=== PATIENT | female | born 1985 | race Caucasian/White ===

== ENCOUNTER → 2016-12-09 13:48 | Outpatient (CLI) | payer MEDICAID ==
[2015-04-10 02:04] VITALS: BMI 25.8
[~2016-12-09 13:48] MED LIST: CLEOCIN HCL300 MG PO; ZOFRAN4 MG PO
== END | disposition home or self-care (01) ==
LOC: D.US 13:48
DX: N63 Unspecified lump in breast (principal); N64.52 Nipple discharge

== ENCOUNTER 2016-12-27 17:13 | Emergency (ER) | payer MEDICAID ==
[2015-04-10 02:04] VITALS: BMI 25.8
[2016-12-27 18:46] LABS: BASOPHILS 0.3 % (0.0-2.0); EOSINOPHILS 2.1 % (0-7); HEMATOCRIT 39.1 % (36.0-48.0); IMMATURE GRANULOCYTES 0.2 % (0-5); LYMPHOCYTES 35.9 % (15-50); MCH 31.6 pg (26.0-34.0); MCHC 33.2 g/dL (31.0-37.0); MCV 95.1 fL (80.0-100.0); MEAN PLATELET VOLUME 11.2 fL (7.4-10.4); MONOCYTES 7.3 % (2-11); NEUTROPHILS 54.2 % (40-80); PLATELET COUNT 173 10x3/uL (130-400); RBC 4.11 10x6/uL (4.00-5.40); RDW 12.5 % (11.5-14.5); WBC 6.3 10x3/uL (4.8-10.8)
[2016-12-27 19:00] LABS: ALBUMIN 3.7 g/dL (3.4-5.0); ALKALINE PHOSPHATASE 37 U/L (46-116); ALT (SGPT) 15 U/L (10-68); BILIRUBIN - TOTAL 0.39 mg/dL (0.2-1.3); CALC OSMOLALITY 281 mosm/kg (275-300); CALCIUM 8.5 mg/dL (8.5-10.1); CARBON DIOXIDE 31.9 mmol/L (21.0-32.0); CHLORIDE - SERUM 106 mmol/L (98-107); CREATININE - SERUM 0.8 mg/dL (0.6-1.3); GLUCOSE 81 mg/dL (74-106); POTASSIUM - SERUM 4.1 mmol/L (3.5-5.1); PROTEIN - SERUM 6.6 g/dL (6.4-8.2); SODIUM 142 mmol/L (136-145); UREA NITROGEN 12 mg/dL (7-18); eGFR NON AFRICAN AMERICAN 90 mL/min (90-120)
[2016-12-27 19:53] LABS: HCG URINE NEGATIVE (NEGATIVE)
[2016-12-27 19:55] LABS: APPEARANCE SLT CLOUDY (CLEAR); BILIRUBIN NEGATIVE (NEGATIVE); COLOR YELLOW (YELLOW); GLUCOSE NEGATIVE (NEGATIVE); KETONE NEGATIVE (NEGATIVE); LEUKOCYTE ESTERASE NEGATIVE (NEGATIVE); NITRITE NEGATIVE (NEGATIVE); PROTEIN NEGATIVE (NEGATIVE); UROBILINOGEN NORMAL (NORMAL)
[2016-12-27 20:00] LABS: AMORPHOUS SEDIMENT >1+ /lpf (NONE SEEN); BACTERIA FEW /hpf (NONE SEEN); EPITHELIAL CELLS 0-5 /hpf (0-5); RED CELLS - URINE NONE SEEN /hpf (0-5); WHITE CELLS - URINE 0-5 /hpf (0-5)
== END 2016-12-27 22:40 | disposition home or self-care (01) ==
LOC: D.ER 17:13
PROVIDERS: Emergency Medicine
DX: R53.1 Weakness (principal); R20.9 Unspecified disturbances of skin sensation; F41.9 Anxiety disorder, unspecified; F12.10 Cannabis abuse, uncomplicated

== ENCOUNTER 2016-12-30 15:53 | Emergency (ER) | payer MEDICAID ==
[2015-04-10 02:04] VITALS: BMI 25.8
[2016-12-30 19:49] LABS: BASOPHILS 0.3 % (0.0-2.0); EOSINOPHILS 0.8 % (0-7); HEMATOCRIT 40.1 % (36.0-48.0); HEMOGLOBIN 13.4 g/dL (12-16); IMMATURE GRANULOCYTES 0.1 % (0-5); LYMPHOCYTES 30.4 % (15-50); MCH 31.4 pg (26.0-34.0); MCHC 33.4 g/dL (31.0-37.0); MCV 93.9 fL (80.0-100.0); MEAN PLATELET VOLUME 11.3 fL (7.4-10.4); MONOCYTES 6.2 % (2-11); NEUTROPHILS 62.2 % (40-80); PLATELET COUNT 159 10x3/uL (130-400); RBC 4.27 10x6/uL (4.00-5.40); RDW 12.5 % (11.5-14.5); WBC 7.3 10x3/uL (4.8-10.8)
[2016-12-30 20:32] LABS: ALBUMIN 4.1 g/dL (3.4-5.0); ALKALINE PHOSPHATASE 41 U/L (46-116); ALT (SGPT) 16 U/L (10-68); BILIRUBIN - TOTAL 0.72 mg/dL (0.2-1.3); CALC OSMOLALITY 276 mosm/kg (275-300); CALCIUM 8.6 mg/dL (8.5-10.1); CARBON DIOXIDE 28.7 mmol/L (21.0-32.0); CHLORIDE - SERUM 103 mmol/L (98-107); CREATININE - SERUM 0.7 mg/dL (0.6-1.3); GLUCOSE 84 mg/dL (74-106); POTASSIUM - SERUM 4.1 mmol/L (3.5-5.1); SODIUM 139 mmol/L (136-145); UREA NITROGEN 13 mg/dL (7-18); eGFR NON AFRICAN AMERICAN > 90 mL/min (90-120)
[2016-12-30 20:41] LABS: THYROID STIMULATING HORMONE 1.77 uIU/mL (0.36-3.74)
[2016-12-30 20:56] LABS: ERYTHROCYTE SEDIMENTATION RATE 8 mm/hr (0-20)
== END 2016-12-30 21:08 | disposition home or self-care (01) ==
LOC: D.ER 15:53
PROVIDERS: Family Medicine
DX: G62.9 Polyneuropathy, unspecified (principal)

== ENCOUNTER 2017-01-02 11:53 | Emergency (ER) | payer MEDICAID ==
[2015-04-10 02:04] VITALS: BMI 25.8
== END 2017-01-02 14:56 | disposition home or self-care (01) ==
LOC: D.ER 11:53
DX: G62.9 Polyneuropathy, unspecified (principal); F17.200 Nicotine dependence, unspecified, uncomplicated; F15.10 Other stimulant abuse, uncomplicated

== ENCOUNTER → 2017-03-13 12:57 | Outpatient (CLI) | payer MEDICAID ==
[2015-04-10 02:04] VITALS: BMI 25.8
== END | disposition home or self-care (01) ==
LOC: D.MRI 12:57
DX: R29.898 Other symptoms and signs involving the musculoskeletal system (principal); F32.0 Major depressive disorder, single episode, mild

== ENCOUNTER → 2017-05-07 08:05 | Outpatient (CLI) | payer OTHER ==
[2015-04-10 02:04] VITALS: BMI 25.8
--- NOTE | ~2017-05-07 | EMG ---
PATIENT:CHRIS LUDWIG DATE OF SERVICE: 05/07/17 MEDICAL RECORD: [id number] DATE OF : 89 LOCATION: [facility] ADMISSION DATE: REFERRING PHYSICIAN: SIENNA FIELDS MD INTERPRETING PHYSICIAN: NOEMY GIPSON MD DATE OF SERVICE: 05/07/[address] Fields as an outpatient. ELECTROMYOGRAPHIC DATA: Electromyographic examination is limited to the right lower extremity. In the right lower extremity, right peroneal motor stimulation elicits a compound motor action potential with a distal latency of 3.7 milliseconds, peak amplitude of 4 millivolts, and calculated conduction velocity of 50 meters per second. Right tibial motor stimulation elicits a compound motor action potential with a distal latency of 4.3 milliseconds, peak amplitude of 13 millivolts, and calculated conduction velocity of 49 meters per second. Antidromic right sural sensory stimulation elicits a response with a distal latency of 2.8 milliseconds, amplitude of 12 microvolts and calculated conduction velocity of 42 meters per second. The right lower extremity H reflex recording at gastrocsoleus has a latency of 29 milliseconds. Needle electrode examination is limited to the right lower extremity as well. Muscles interrogated include the abductor hallucis, extensor digitorum brevis, abductor digiti quinti, tibialis anterior, medial gastrocnemius, vastus lateralis, semitendinosis and gluteus nereida. There is no abnormality of insertional activity and no abnormal spontaneous activity is seen in all muscles interrogated. Motor unit potential morphology and the pattern of motor unit potential firing and recruitment however, is abnormal. No motor unit fire on reported attempted contraction of intrinsic foot muscles as well as the tibialis anterior and medial gastrocnemius. Motor unit potential morphology and the pattern of motor unit potential firing and recruitment in the more proximal limb including the quadriceps femoris, semitendinosis and gluteus nereida demonstrates a decrease in the number of motor units firing at a slow variable rate consistent with decreased and variable recruitment. Motor unit potential morphology is normal in all of these observed muscles. INTERPRETATION: Electromyographic examination of the right lower extremity is normal with the exception of absence of any motor units firing from the intrinsic foot muscles as well as the tibialis anterior and medial gastrocnemius. More proximally, motor units are normal in morphology, but demonstrate a slow variable pattern of firing consistent with either decreased patient's effort on upper motor neuron pattern. Clinical correlation is required. TRANSINT:[id number] Voice Confirmation ID: [id number] DOCUMENT ID: [id number] ELECTROMYGRAM/NERVE CONDUCTION [id number] CHRIS LUDWIG DONALD P MD CC: [id number] DICTATION DATE: 05/07/17 0854 DSP ENGINEER: 05/08/17 0137 DEP CLI 05/07/17 [place] [id number]
== END | disposition home or self-care (01) ==
LOC: D.CN 02-24 09:00
DX: R20.9 Unspecified disturbances of skin sensation (principal)

== ENCOUNTER 2018-05-06 11:49 | Emergency (ER) | payer MEDICAID ==
[~2018-05-06] VITALS: Ht 162.6 cm; Wt 61.4 kg
[2018-05-06 11:53] VITALS: Ht 162.6 cm; Wt 61.4 kg
[2018-05-06] MEDS ORDERED: VOLTAREN75 MG PO (14:30)
[2018-05-06] MEDS ORDERED: HYDROCODONE-APA1 TAB PO (14:30)
[2018-05-06 14:59] VITALS: BP 118/078
[2018-05-14] MEDS ORDERED: VALIUM5 MG PO (17:25)
[2018-05-14] MEDS ORDERED: VYVANSE70 MG PO (17:25)
[2018-05-14] MEDS ORDERED: NORCO 7.5/325 T1 TA1 PO (17:26)
[2018-05-15] MEDS ORDERED: PERCOCET 10/3251 TA1 PO (12:57)
[2018-05-15] MEDS ORDERED: VISTARIL50 MG PO (12:57)
[2018-05-15] MEDS ORDERED: DURICEF500 MG PO (12:57)
== END 2018-05-06 15:02 | disposition home or self-care (01) ==
LOC: D.ER 11:49
DX: S52.121A Displaced fracture of head of right radius, initial encounter for closed fracture (principal); W19.XXXA Unspecified fall, initial encounter; Y93.89 Activity, other specified; Y92.019 Unspecified place in single-family (private) house as the place of occurrence of the external cause; F17.200 Nicotine dependence, unspecified, uncomplicated

== ENCOUNTER → 2018-05-11 17:32 | Outpatient (CLI) | payer OTHER ==
[2018-05-06 11:53] VITALS: BMI 23.2
[~2018-05-11 17:32] MED LIST changes: +DURICEF500 MG PO; +ENDOCET 10-3251 TAB PO; +HYDROCODONE-APA1 TAB PO; +KEFLEX500 MG PO; +NORCO 7.5/325 T1 TA1 PO; +PERCOCET 10/3251 TA1 PO; +VALIUM5 MG PO; +VISTARIL50 MG PO; +VOLTAREN75 MG PO; +VYVANSE70 MG PO
== END | disposition home or self-care (01) ==
LOC: D.CT 17:30
DX: S52.131A Displaced fracture of neck of right radius, initial encounter for closed fracture (principal); X58.XXXA Exposure to other specified factors, initial encounter

== ENCOUNTER 2018-05-15 13:15 | Day surgery (SDC) | payer OTHER ==
[2018-05-14 17:47] LABS: HEMOGLOBIN 11.5 g/dL (12-16); MCH 31.6 pg (26.0-34.0); MCHC 32.9 g/dL (31.0-37.0); MCV 96.2 fL (80.0-100.0); MEAN PLATELET VOLUME 10.5 fL (7.4-10.4); RBC 3.64 10x6/uL (4.00-5.40); RDW 12.4 % (11.5-14.5); WBC 6.6 10x3/uL (4.8-10.8)
[~2018-05-15] VITALS: Ht 162.6 cm; Wt 54.4 kg
--- NOTE | ~2018-05-15 | OP ---
PATIENT NAME: CHRIS BARRIOS MEDICAL RECORD: [id number] :89 LOCATION:[facility] ADMISSION DATE: SURGEON: DELMIS RUBY DO DATE OF OPERATION: 05/15/2018 PROCEDURE PERFORMED: Right radial head arthroplasty. PREOPERATIVE DIAGNOSIS: Right radial head displaced and comminuted closed fracture. POSTOPERATIVE DIAGNOSIS: Right radial head displaced and comminuted closed fracture. INDICATIONS: Ms. Barrios is a right hand dominant female who fell approximately a week ago onto her right elbow sustaining a fracture to her right radial head. She was seen in clinic and x-rays were done from the ER and saw there was ordered a CT and CT demonstrated a comminuted radial head fracture that was displaced, greater than 30% and was in approximately 3 pieces. I had a long discussion with the patient due to the fact that she smokes and bone healing is poor in smokers and I told her that if I could fix it with open reduction internal fixation, in other words plates and screws, I would, however, if it were comminuted severely then I would likely do a radial head arthroplasty due to the fact that she smokes and she would likely not heal it. She was okay with that. In fact, she requested that I do the radial head replacement, but I told her I would wait and see when I got into the surgery. She is aware of the risks and benefits of procedure including damage to the posterior interosseous nerve and she consented to the procedure as well as infection, bleeding, need for further surgery, and long-term elbow pain. She consented to that for right radial head arthroplasty versus open reduction and internal fixation. DESCRIPTION OF PROCEDURE: The patient was given a block and preoperative anesthesia and taken to the operative suite, laid in supine position, given general anesthetic. The right upper extremity was prepped and draped in sterile fashion with a tourniquet above the elbow. Once she was prepped and draped, a timeout was performed, everyone was in agreement of correct side, site, and patient. An incision was then marked out and an Esmarch was used to exsanguinate the right upper extremity and inflated to 250 mmHg. It was up for 57 minutes. The incision then began at the skin obliquely across the lateral epicondyle. Careful dissection was made down to the plane between the extensor carpi ulnaris and the anconeus muscles. This interval was the Costello interval and was used to dissect down to the radial head and the capsule itself. Once dissection was made down, the capsulotomy was performed and the radial head was exposed. Once the radial head was exposed, it was seen to be in several pieces and comminuted and rotated. Reduction was attempted, but it fell apart and at that time it was decided to do a radial head arthroplasty due to the severity of the comminution and per the patient's request. Then, the neck was cut in order to accommodate the neck of the implant of the radial neck after careful dissection and exposure of it. The hand was held in pronation the entire time in order to protect the posterior interosseous nerve. The broach was used, 7 fit well. I could not get all the way down. We trialed with a 7, with a 22 head size and 0 neck and that seemed to fit well. However, once we put the actual implant of the 7, it was somewhat loose and I then broached up to an 8 and put an 8 neck in and then implanted the 0 neck with 22. This was confirmed on AP x-ray to be in good position, not overstuffed to the joint. She had full range of motion of the elbow while asleep in pronation and supination and OPERATIVE REPORT [id number] CHRIS BARRIOS L flexion and extension. Once the implant was set, the fovea was marked of the ulna and the rotation of the implant was set with a set screw. After this was done, the x-rays were taken and confirmed to be in good placement and good movement. X-rays in the AP plane were taken in supination and pronation and again it was seen to fit well and have a good fit. The capsule was then closed with 0 Vicryl, first in a [id number] and then a running stitch and that was cut and then the Costello's interval between the extensor carpi ulnaris and anconeus was closed with 0 Vicryl and skin was closed with 3-0 Vicryl and 4-0 Monocryl ran on the skin. Steri-Strips were placed over it. The tourniquet was let down at that time at 57 minutes and the Adaptic, 4 x 4s and Webril were placed on the patient and a posterior long arm splint was placed on the patient and secured with an Booker wrap. She was then awakened and taken to recovery in stable condition. COMPLICATIONS: None. TOURNIQUET TIME: 57 minutes. BLOOD LOSS: Minimal. TRANSINT:[id number] Voice Confirmation ID: [id number] DOCUMENT ID: [id number] DELMIS RUBY DO at 1523 CC: [id number] DICTATION DATE: 05/15/18 1416 PATROLLER: 05/15/18 1434 [facility]://date// //time// [facility] [address] [place] [address]
[2018-05-15 11:03] VITALS: BP 106/66; Ht 162.6 cm; Wt 54.4 kg
[~2018-05-15 13:15] MED LIST changes: -ENDOCET 10-3251 TAB PO; -KEFLEX500 MG PO
== END 2018-05-15 15:30 | disposition home or self-care (01) ==
LOC: D.OPS 13:15
PROVIDERS: Anesthesiology
DX: S52.121A Displaced fracture of head of right radius, initial encounter for closed fracture (principal); Z01.812 Encounter for preprocedural laboratory examination; Z72.0 Tobacco use; W19.XXXA Unspecified fall, initial encounter

== ENCOUNTER 2018-05-23 03:27 | Emergency (ER) | payer OTHER ==
[~2018-05-23] VITALS: Ht 162.6 cm; Wt 54.5 kg
[2018-05-23 03:35] VITALS: Ht 162.6 cm; Wt 54.5 kg
[2018-05-23 04:32] LABS: BASOPHILS 0.2 % (0-2); EOSINOPHILS 0 % (0-7); HEMATOCRIT 37.9 % (36.0-48.0); IMMATURE GRANULOCYTES 0.2 % (0-5); LYMPHOCYTES 7.8 % (15-50); MCHC 34.3 g/dL (31.0-37.0); MCV 93.3 fL (80.0-100.0); MONOCYTES 6.2 % (2-11); NEUTROPHILS 85.6 % (40-80); RBC 4.06 10x6/uL (4.00-5.40); RDW 12.6 % (11.5-14.5); WBC 11.2 10x3/uL (4.8-10.8)
[2018-05-23 04:40] LABS: PLATELET COUNT 267 10x3/uL (130-400)
[2018-05-23 04:55] LABS: ALBUMIN 3.3 g/dL (3.4-5.0); ALKALINE PHOSPHATASE 54 U/L (46-116); ALT (SGPT) 23 U/L (10-68); BILIRUBIN - TOTAL 0.61 mg/dL (0.2-1.3); CALC OSMOLALITY 274 mosm/kg (275-300); CALCIUM 8.6 mg/dL (8.5-10.1); CARBON DIOXIDE 26.5 mmol/L (21.0-32.0); CHLORIDE - SERUM 101 mmol/L (98-107); CREATININE - SERUM 0.8 mg/dL (0.6-1.3); GLUCOSE 94 mg/dL (74-106); POTASSIUM - SERUM 3.7 mmol/L (3.5-5.1); PROTEIN - SERUM 7.3 g/dL (6.4-8.2); SODIUM 137 mmol/L (136-145); UREA NITROGEN 15 mg/dL (7-18); eGFR NON AFRICAN AMERICAN 89 mL/min (90-120)
[2018-05-23 04:56] LABS: UDS - AMPHET POSITIVE QUAL (NEGATIVE); UDS - BARB NEGATIVE QUAL (NEGATIVE); UDS - BENZO POSITIVE QUAL (NEGATIVE); UDS - COCAINE NEGATIVE QUAL (NEGATIVE); UDS - OPIATE POSITIVE QUAL (NEGATIVE); UDS - PCP NEGATIVE QUAL (NEGATIVE); UDS - THC POSITIVE QUAL (NEGATIVE)
[2018-05-23 05:01] LABS: HCG SERUM NEGATIVE (NEGATIVE)
[2018-05-23 05:13] LABS: CREATINE KINASE 319 UL (21-215); THYROID STIMULATING HORMONE 0.89 uIU/mL (0.36-3.74)
[2018-05-23 05:15] LABS: CKMB 3.8 U/L (0.0-3.6)
[2018-05-23 10:22] VITALS: BP 112/70
== END 2018-05-23 10:55 | disposition other institution (70) ==
LOC: D.ER 03:27
PROVIDERS: Family Medicine
DX: F19.129 Other psychoactive substance abuse with intoxication, unspecified (principal); G40.909 Epilepsy, unspecified, not intractable, without status epilepticus; Y04.2XXA Assault by strike against or bumped into by another person, initial encounter; Y93.89 Activity, other specified; Y92.89 Other specified places as the place of occurrence of the external cause; F17.200 Nicotine dependence, unspecified, uncomplicated

== ENCOUNTER 2018-06-09 14:27 | Inpatient (IN) | payer OTHER ==
[~2018-06-09] VITALS: Ht 162.6 cm; Wt 63.5 kg
[2018-06-09 15:34] LABS: BASOPHILS 0.2 % (0-2); EOSINOPHILS 1.2 % (0-7); HEMATOCRIT 34.3 % (36.0-48.0); HEMOGLOBIN 11.7 g/dL (12-16); IMMATURE GRANULOCYTES 0.2 % (0-5); LYMPHOCYTES 19.9 % (15-50); MCH 31.5 pg (26.0-34.0); MCHC 34.1 g/dL (31.0-37.0); MCV 92.2 fL (80.0-100.0); MEAN PLATELET VOLUME 11.2 fL (7.4-10.4); MONOCYTES 11.1 % (2-11); NEUTROPHILS 67.4 % (40-80); RBC 3.72 10x6/uL (4.00-5.40); RDW 13.2 % (11.5-14.5); WBC 5.9 10x3/uL (4.8-10.8)
[2018-06-09 15:41] LABS: PLATELET COUNT 192 10x3/uL (130-400)
[2018-06-09 16:00] LABS: ALBUMIN 2.6 g/dL (3.4-5.0); ALKALINE PHOSPHATASE 48 U/L (46-116); ALT (SGPT) 13 U/L (10-68); BILIRUBIN - TOTAL 0.56 mg/dL (0.2-1.3); CALC OSMOLALITY 274 mosm/kg (275-300); CALCIUM 8.2 mg/dL (8.5-10.1); CARBON DIOXIDE 28.3 mmol/L (21.0-32.0); CHLORIDE - SERUM 105 mmol/L (98-107); CREATININE - SERUM 0.7 mg/dL (0.6-1.3); GLUCOSE 89 mg/dL (74-106); PROTEIN - SERUM 6.6 g/dL (6.4-8.2); SODIUM 139 mmol/L (136-145); UREA NITROGEN 7 mg/dL (7-18); eGFR NON AFRICAN AMERICAN > 90 mL/min (90-120)
[2018-06-09 16:03] LABS: CKMB 0.6 U/L (0.0-3.6); CREATINE KINASE 48 UL (21-215)
[2018-06-09 16:04] LABS: C-REACTIVE PROTEIN 18.4 mg/dL (0.0-0.9)
[2018-06-09 16:45] VITALS: BP 92/58
[2018-06-09 17:52] LABS: ERYTHROCYTE SEDIMENTATION RATE 8 mm/hr (0-20)
[2018-06-09 19:52] LABS: UDS - AMPHET POSITIVE QUAL (NEGATIVE); UDS - BARB NEGATIVE QUAL (NEGATIVE); UDS - BENZO NEGATIVE QUAL (NEGATIVE); UDS - COCAINE NEGATIVE QUAL (NEGATIVE); UDS - OPIATE POSITIVE QUAL (NEGATIVE); UDS - PCP NEGATIVE QUAL (NEGATIVE); UDS - THC POSITIVE QUAL (NEGATIVE)
[2018-06-09 19:59] LABS: APPEARANCE HAZY (CLEAR); BILIRUBIN NEGATIVE (NEGATIVE); COLOR YELLOW (YELLOW); GLUCOSE NEGATIVE (NEGATIVE); KETONE NEGATIVE (NEGATIVE); NITRITE NEGATIVE (NEGATIVE); PROTEIN TRACE mg/dL (NEGATIVE); SPECIFIC GRAVITY 1.015 (1.005-1.020); UROBILINOGEN NORMAL (NORMAL)
[2018-06-09 20:00] VITALS: BP 86/52
[2018-06-09 20:00] LABS: BACTERIA MANY /hpf (NONE SEEN); EPITHELIAL CELLS 0-5 /hpf (0-5); RED CELLS - URINE 0-5 /hpf (0-5); WHITE CELLS - URINE >50 /hpf (0-5)
[2018-06-09 22:58] VITALS: BP 86/52; Ht 162.6 cm; Wt 63.5 kg
[2018-06-10] VITALS: BP 90/51
[2018-06-10 04:00] VITALS: BP 99/58
[2018-06-10 05:39] LABS: BASOPHILS 0.4 % (0-2); EOSINOPHILS 3.2 % (0-7); HEMATOCRIT 29.8 % (36.0-48.0); HEMOGLOBIN 9.8 g/dL (12-16); IMMATURE GRANULOCYTES 0.2 % (0-5); LYMPHOCYTES 33.3 % (15-50); MCH 31.1 pg (26.0-34.0); MCHC 32.9 g/dL (31.0-37.0); MEAN PLATELET VOLUME 11.1 fL (7.4-10.4); NEUTROPHILS 49.9 % (40-80); PLATELET COUNT 173 10x3/uL (130-400); RBC 3.15 10x6/uL (4.00-5.40); RDW 13.6 % (11.5-14.5); WBC 5.3 10x3/uL (4.8-10.8)
[2018-06-10 05:40] LABS: MCV 94.6 fL (80.0-100.0)
[2018-06-10 05:50] LABS: ALBUMIN 2.1 g/dL (3.4-5.0); ALKALINE PHOSPHATASE 43 U/L (46-116); ALT (SGPT) 14 U/L (10-68); BILIRUBIN - TOTAL 0.38 mg/dL (0.2-1.3); CALCIUM 7.5 mg/dL (8.5-10.1); CARBON DIOXIDE 25.5 mmol/L (21.0-32.0); CHLORIDE - SERUM 106 mmol/L (98-107); CREATININE - SERUM 0.6 mg/dL (0.6-1.3); GLUCOSE 119 mg/dL (74-106); SODIUM 140 mmol/L (136-145); eGFR NON AFRICAN AMERICAN > 90 mL/min (90-120)
[2018-06-10 05:54] LABS: CALC OSMOLALITY 278 mosm/kg (275-300); POTASSIUM - SERUM 3.7 mmol/L (3.5-5.1); PROTEIN - SERUM 4.8 g/dL (6.4-8.2); UREA NITROGEN 9 mg/dL (7-18)
[2018-06-10 09:33] VITALS: BP 100/64
[2018-06-10 10:29] LABS: HCG URINE NEGATIVE (NEGATIVE)
[2018-06-10 13:25] VITALS: BP 108/73
[2018-06-10 13:38] LABS: BASOPHILS 0.5 % (0-2); EOSINOPHILS 2.5 % (0-7); HEMATOCRIT 28.7 % (36.0-48.0); HEMOGLOBIN 9.5 g/dL (12-16); IMMATURE GRANULOCYTES 0.3 % (0-5); LYMPHOCYTES 25.6 % (15-50); MCH 31.3 pg (26.0-34.0); MCHC 33.1 g/dL (31.0-37.0); MCV 94.4 fL (80.0-100.0); MEAN PLATELET VOLUME 10.9 fL (7.4-10.4); MONOCYTES 10.1 % (2-11); PLATELET COUNT 155 10x3/uL (130-400); RBC 3.04 10x6/uL (4.00-5.40); RDW 13.4 % (11.5-14.5)
[2018-06-10 13:59] LABS: CALCIUM 7.4 mg/dL (8.5-10.1); CHLORIDE - SERUM 108 mmol/L (98-107); CREATININE - SERUM 0.5 mg/dL (0.6-1.3); GLUCOSE 90 mg/dL (74-106); POTASSIUM - SERUM 3.8 mmol/L (3.5-5.1); SODIUM 139 mmol/L (136-145); eGFR NON AFRICAN AMERICAN > 90 mL/min (90-120)
[2018-06-10 14:00] LABS: CALC OSMOLALITY 275 mosm/kg (275-300); CARBON DIOXIDE 32.3 mmol/L (21.0-32.0); UREA NITROGEN 6 mg/dL (7-18)
[2018-06-10 20:00] VITALS: BP 101/63
[2018-06-11 04:00] VITALS: BP 96/49
[2018-06-11 08:40] VITALS: BP 99/40
[2018-06-11 13:34] VITALS: BP 105/72
[2018-06-11 16:48] VITALS: BP 100/60
[2018-06-11 21:09] VITALS: BP 110/85
[2018-06-12 00:53] VITALS: BP 124/74
[2018-06-12 05:06] VITALS: BP 118/84
[2018-06-12 13:32] VITALS: BP 101/55
[2018-06-12 15:24] VITALS: BP 120/63
[2018-06-12 21:42] VITALS: BP 125/51
[2018-06-13 00:42] VITALS: BP 143/71
[2018-06-13 11:05] VITALS: BP 121/61
[2018-06-13 14:46] VITALS: BP 121/58
[2018-06-13 20:00] VITALS: BP 105/69
[2018-06-14 04:00] VITALS: BP 113/59
[2018-06-14 10:22] VITALS: BP 140/87
[2018-06-14 16:42] VITALS: BP 125/60
[2018-06-14 20:33] VITALS: BP 110/48
[2018-06-15 03:54] LABS: BASOPHILS 0.6 % (0-2); EOSINOPHILS 4.9 % (0-7); HEMATOCRIT 37.6 % (36.0-48.0); HEMOGLOBIN 12.2 g/dL (12-16); IMMATURE GRANULOCYTES 0.6 % (0-5); LYMPHOCYTES 35.4 % (15-50); MCH 30.7 pg (26.0-34.0); MCHC 32.4 g/dL (31.0-37.0); MCV 94.5 fL (80.0-100.0); MEAN PLATELET VOLUME 10.1 fL (7.4-10.4); MONOCYTES 9.4 % (2-11); NEUTROPHILS 49.1 % (40-80); RBC 3.98 10x6/uL (4.00-5.40)
[2018-06-15 04:00] LABS: CALC OSMOLALITY 273 mosm/kg (275-300); CALCIUM 8.6 mg/dL (8.5-10.1); CARBON DIOXIDE 35.9 mmol/L (21.0-32.0); CHLORIDE - SERUM 99 mmol/L (98-107); CREATININE - SERUM 0.8 mg/dL (0.6-1.3); GLUCOSE 96 mg/dL (74-106); POTASSIUM - SERUM 4.9 mmol/L (3.5-5.1); SODIUM 137 mmol/L (136-145); UREA NITROGEN 12 mg/dL (7-18); eGFR NON AFRICAN AMERICAN 89 mL/min (90-120)
[2018-06-15 04:07] LABS: PLATELET COUNT 270 10x3/uL (130-400)
[2018-06-15 04:52] LABS: ERYTHROCYTE SEDIMENTATION RATE 14 mm/hr (0-20)
[2018-06-15 08:27] VITALS: BP 113/63
[2018-06-15 13:32] VITALS: BP 113/63
[2018-06-15 18:34] VITALS: BP 137/78
[2018-06-15 20:00] VITALS: BP 110/68
[2018-06-16 04:42] VITALS: BP 105/54
[2018-06-16 09:18] VITALS: BP 115/60
[2018-06-16 12:28] VITALS: BP 118/70
[2018-06-16 16:14] VITALS: BP 102/54
[2018-06-16 20:50] VITALS: BP 133/78
[2018-06-17 03:55] VITALS: BP 111/54
[2018-06-17 08:28] VITALS: BP 130/64
[2018-06-17] MEDS ORDERED: DURICEF500 MG PO (09:39)
[2018-06-17] MEDS ORDERED: ENDOCET 10-3251 TAB PO (09:39)
[2018-06-17] MEDS ORDERED: VISTARIL50 MG PO ×2 (09:40→09:43)
[2018-06-17] MEDS ORDERED: VALIUM5 MG PO (09:41)
[2018-06-17] MEDS ORDERED: KEFLEX500 MG PO (09:45)
== END 2018-06-17 14:10 | disposition home or self-care (01) | DRG 464 ==
LOC: D.ER 14:27 → D.MS 17:38 → D.EDHOLD 17:38 → D.MS 18:17
PROVIDERS: Anesthesiology; Family Medicine; Orthopaedic Surgery; Student in an Organized Health Care Education/Training Program
PROC: 0RPN0JZ Removal of Synthetic Substitute from Right Wrist Joint, Open Approach (ICD-10-PCS; principal; 2018-06-10 10:00)
PROC: 0JBG0ZZ Excision of Right Lower Arm Subcutaneous Tissue and Fascia, Open Approach (ICD-10-PCS; 2018-06-10 10:00)
DX: T84.59XA Infection and inflammatory reaction due to other internal joint prosthesis, initial encounter (principal); M00.9 Pyogenic arthritis, unspecified; F15.10 Other stimulant abuse, uncomplicated; F11.10 Opioid abuse, uncomplicated; F12.10 Cannabis abuse, uncomplicated; E87.6 Hypokalemia; F17.200 Nicotine dependence, unspecified, uncomplicated

== ENCOUNTER 2018-07-03 12:18 | Emergency (ER) | payer OTHER ==
[~2018-07-03] VITALS: Ht 162.6 cm; Wt 63.6 kg
[~2018-07-03 12:18] MED LIST changes: +ENDOCET 10-3251 TAB PO; +KEFLEX500 MG PO
[2018-07-03 12:55] VITALS: BP 098/58; Ht 162.6 cm; Wt 63.6 kg
[2018-07-03 13:13] LABS: BASOPHILS 0.5 % (0-2); EOSINOPHILS 1.9 % (0-7); HEMATOCRIT 36.9 % (36.0-48.0); HEMOGLOBIN 11.8 g/dL (12-16); IMMATURE GRANULOCYTES 0.3 % (0-5); LYMPHOCYTES 35.2 % (15-50); MCH 30.4 pg (26.0-34.0); MCV 95.1 fL (80.0-100.0); MEAN PLATELET VOLUME 10.2 fL (7.4-10.4); MONOCYTES 8.5 % (2-11); NEUTROPHILS 53.6 % (40-80); PLATELET COUNT 245 10x3/uL (130-400); RBC 3.88 10x6/uL (4.00-5.40); RDW 13.8 % (11.5-14.5); WBC 3.8 10x3/uL (4.8-10.8)
[2018-07-03 13:41] LABS: ALKALINE PHOSPHATASE 56 U/L (46-116); ALT (SGPT) 20 U/L (10-68); BILIRUBIN - TOTAL 0.42 mg/dL (0.2-1.3); CALC OSMOLALITY 276 mosm/kg (275-300); CALCIUM 8.6 mg/dL (8.5-10.1); CARBON DIOXIDE 29.3 mmol/L (21.0-32.0); CHLORIDE - SERUM 105 mmol/L (98-107); CREATININE - SERUM 0.7 mg/dL (0.6-1.3); POTASSIUM - SERUM 4.1 mmol/L (3.5-5.1); SODIUM 139 mmol/L (136-145); UREA NITROGEN 14 mg/dL (7-18); eGFR NON AFRICAN AMERICAN > 90 mL/min (90-120)
[2018-07-03 13:43] LABS: GLUCOSE 63 mg/dL (74-106)
[2018-07-03] MEDS ORDERED: CLEOCIN HCL300 MG PO (18:14)
[2018-07-03 18:29] LABS: ERYTHROCYTE SEDIMENTATION RATE 33 mm/hr (0-20)
== END 2018-07-03 17:06 | disposition left against medical advice (07) ==
LOC: D.ER 12:18
PROVIDERS: Family Medicine
DX: M25.521 Pain in right elbow (principal); F17.200 Nicotine dependence, unspecified, uncomplicated

== ENCOUNTER 2018-07-03 17:12 | Emergency (ER) | payer OTHER ==
[~2018-07-03] VITALS: Ht 162.6 cm; Wt 63.6 kg
[2018-07-03 17:15] VITALS: BP 113/77; Ht 162.6 cm; Wt 63.6 kg
[2018-07-03] MEDS ORDERED: CLEOCIN HCL300 MG PO (18:14)
== END 2018-07-03 19:07 | disposition home or self-care (01) ==
LOC: D.ER 17:12
DX: M25.521 Pain in right elbow (principal); F17.200 Nicotine dependence, unspecified, uncomplicated